=== PATIENT | male | born 1995 | race Caucasian/White ===

== ENCOUNTER 2020-12-12 21:19 | Emergency (ER) | payer MEDICAID ==
[~2020-12-12] VITALS: Ht 188 cm; Wt 92.0 kg
[2020-12-12 21:35] VITALS: BP 138/82
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
--- NOTE | 2020-12-12 23:58 | NUR ---
At this time, primary RN asked if this pt could be discharged by this RN. Pt a&ox4, and sitting up in bed. f/u and d/c instructions given to pt and explained and he states that while he understands, that he does not want to leave as we have not treated his complaint the way he feels we should have. Pt was sent to the xray dept for xrays of his L hip and shoulder, and he refused the xrays, saying that's not what he wanted and that he feels he needs a full body MRI. Pt reoriented to the treatment process that the MD had ordered, and that he had refused it. No more tests relevant to pts complaints are ordered at this time, as the relevant ones were refused by the pt. Pt now refuses to leave and has become beligerent in the room, saying we haven't treated him and attempting to state that he legally can't be d/c. the MD has physically assesed and cleared the pt, and d/c instructions printed and released by the MD. Pt again told he is d/c as no more treatment relevant to his complaint is needed, as he refused the treatment and tests needed. Pt remains beligerent and game design instructor notified, and security called to bedside. situation explained to security, that pt is now refusing to be d/c after refusing the care and testing ordered by the MD's. DC paperwork provided for pt, and paperwork placed in his bag for d/c. wheelchair provided for pt, and security at room to d/c pt at this time. pt in no acute distress, able to stand without assistance and bend legs and rotate onto bed. All movements that he says he can't do, but were witnessed by the RN and MD. pt d/c'd by security.
== END 2020-12-13 00:04 | disposition home or self-care (01) ==
LOC: ED 21:29
DX: G89.11 Acute pain due to trauma (principal); M25.552 Pain in left hip; M25.512 Pain in left shoulder; M79.89 Other specified soft tissue disorders
CPT/HCPCS: 99283

== ENCOUNTER 2021-01-03 22:31 | Emergency (ER) | payer BC, MEDICAID ==
[~2021-01-03] VITALS: Ht 188 cm; Wt 91.8 kg
--- NOTE | 2021-01-03 23:07 | NUR ---
Pt fully ambulatory from arrival through triage, NAD, VSS.
[2021-01-03 23:46] VITALS: BP 133/70
== END 2021-01-04 00:07 | disposition home or self-care (01) ==
LOC: ED 23:01
DX: L30.9 Dermatitis, unspecified (principal)
CPT/HCPCS: 99283

== ENCOUNTER 2021-01-08 00:05 | Emergency (ER) | payer MEDICAID ==
[~2021-01-08] VITALS: Ht 188 cm; Wt 90.0 kg
--- NOTE | 2021-01-08 00:07 | NUR ---
Pt denies thoughts of harming himself or others, Pt reports he is having hallucinations, not taking his psych meds.
--- NOTE | 2021-01-08 00:14 | NUR ---
Lab at bedside.
[2021-01-08 00:23] LABS: BASOPHILS % (AUTO) 1 % (0-1); EOSINOPHILS % (AUTO) 1 % (1-7); LYMPHOCYTES % (AUTO) 19 % (22-44); MEAN CORPUSCULAR HEMOGLOBIN 32.2 pg (27.5-34.5); MEAN CORPUSCULAR HGB CONC 34.8 g/dL (33.2-36.2); MEAN PLATELET VOLUME 8.3 fL (7.4-10.4); MONOCYTES % (AUTO) 7 % (2-9); NEUTROPHILS % (AUTO) 73 % (42-75); PLATELET COUNT 212 x10^3/uL (130-400); RED BLOOD COUNT 4.96 x10^6/uL (4.38-5.82); RED CELL DISTRIBUTION WIDTH 12.9 % (9.4-14.8)
[2021-01-08 00:25] LABS: MD NO
[2021-01-08 00:34] LABS: ALANINE AMINOTRANSFERASE 35 U/L (12-78); ALBUMIN 4.4 g/dL (3.4-5.0); ANION GAP 8 mmol/L (5-15); CALCIUM 9.1 mg/dL (8.5-10.1); CHLORIDE 106 mmol/L (98-107); CREATININE 0.97 mg/dL (0.7-1.3); SALICYLATE LEVEL 2.1 mg/dL (2.8-20.0)
[2021-01-08 00:37] LABS: ALKALINE PHOSPHATASE 75 U/L (45-117); BILIRUBIN,TOTAL 0.4 mg/dL (0.2-1.0); TOTAL PROTEIN 8.2 g/dL (6.4-8.2)
--- NOTE | 2021-01-08 00:53 | NUR ---
UA collected and sent to lab- pt used a bedside urinal as he is afraid that he will spread his infection if he walks out of the room.
[2021-01-08 01:18] LABS: AMPHETAMINE SCREEN, URINE Negative (Negative); BARBITURATE SCREEN, URINE Negative (Negative); BENZODIAZEPINE SCREEN, URINE Negative (Negative); CANNABINOID SCREEN, URINE Negative (Negative); COCAINE SCREEN, URINE Negative (Negative); METHADONE SCREEN, URINE Negative (Negative); OPIATE SCREEN, URINE Negative (Negative)
--- NOTE | 2021-01-08 01:50 | NUR ---
Pt denies needs at this time. Tele psych monitor set up in room, no one has come on it yet though.
--- NOTE | 2021-01-08 02:32 | NUR ---
REPORT FROM HARJINDER DODSON
--- NOTE | 2021-01-08 02:34 | NUR ---
Still waiting for tele psych. Pt transported to room 1 and report given to IVORY Jay.
--- NOTE | 2021-01-08 04:02 | NUR ---
PT REPOSITIONED IN BED, AWAITING TELEPSYCH. PT DENIES ANY ADDITIONAL NEEDS AT THIS TIME.
--- NOTE | 2021-01-08 05:19 | NUR ---
report recieved from nimisha brandt. pt resting in [facility], awaiting psych eval
--- NOTE | 2021-01-08 05:20 | NUR ---
BEDSIDE REPORT TO ANALI DODSON
--- NOTE | 2021-01-08 05:49 | NUR ---
pt provided water per request, telepsych called and are about to talk with patient now
[2021-01-08 06:28] VITALS: BP 133/82
== END 2021-01-08 06:30 | disposition home or self-care (01) ==
LOC: ED 05:07
DX: F29 Unspecified psychosis not due to a substance or known physiological condition (principal); R00.0 Tachycardia, unspecified
CPT/HCPCS: 36415; 80053; 80299; 80307; 80320; 80329; 85025; 99284; G0480

== ENCOUNTER 2021-01-09 01:33 | Emergency (ER) | payer MEDICAID ==
[~2021-01-09] VITALS: Ht 185.4 cm; Wt 85.0 kg
[2021-01-09 01:34] VITALS: BP 134/89
--- NOTE | 2021-01-09 03:35 | NUR ---
Dr Szymanski at bedside to examine pt hands.
== END 2021-01-09 03:49 | disposition home or self-care (01) ==
LOC: ED 03:13
DX: F29 Unspecified psychosis not due to a substance or known physiological condition (principal); F22 Delusional disorders
CPT/HCPCS: 99284

== ENCOUNTER 2021-01-11 23:33 | Emergency (ER) | payer MEDICAID ==
[~2021-01-11] VITALS: Ht 188 cm; Wt 95.0 kg
[2021-01-11 23:35] VITALS: BP 129/87
== END 2021-01-12 01:09 | disposition home or self-care (01) ==
LOC: ED 01-12 01:03
DX: Z00.00 Encounter for general adult medical examination without abnormal findings (principal); R11.0 Nausea; R19.7 Diarrhea, unspecified; Z87.891 Personal history of nicotine dependence
CPT/HCPCS: 71045; 99283

== ENCOUNTER 2021-01-16 23:30 | Emergency (ER) | payer MEDICAID ==
[~2021-01-16] VITALS: Ht 188 cm; Wt 91.0 kg
[2021-01-16 23:31] VITALS: BP 142/74
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
[2021-01-17 00:05] LABS: BASOPHILS % (AUTO) 1 % (0-1); EOSINOPHILS % (AUTO) 2 % (1-7); LYMPHOCYTES % (AUTO) 39 % (22-44); MD NO; MEAN CORPUSCULAR HEMOGLOBIN 32.3 pg (27.5-34.5); MEAN CORPUSCULAR HGB CONC 35.2 g/dL (33.2-36.2); MEAN PLATELET VOLUME 8.2 fL (7.4-10.4); MONOCYTES % (AUTO) 9 % (2-9); NEUTROPHILS % (AUTO) 50 % (42-75); PLATELET COUNT 251 x10^3/uL (130-400); RED CELL DISTRIBUTION WIDTH 13.1 % (9.4-14.8)
[2021-01-17 00:13] LABS: ALANINE AMINOTRANSFERASE 26 U/L (12-78); ALBUMIN 3.9 g/dL (3.4-5.0); ANION GAP 7 mmol/L (5-15); CALCIUM 8.9 mg/dL (8.5-10.1); CHLORIDE 108 mmol/L (98-107)
[2021-01-17 00:15] LABS: ALKALINE PHOSPHATASE 73 U/L (45-117); BILIRUBIN,TOTAL 0.4 mg/dL (0.2-1.0); TOTAL PROTEIN 7.3 g/dL (6.4-8.2)
--- NOTE | 2021-01-17 00:34 | NUR ---
Patient given discharge instructions and they have confirmed that they understand the instructions. Patient ambulatory with steady gait. PT refused taxi voucher or bus pass at time of d/c.
== END 2021-01-17 00:36 | disposition home or self-care (01) ==
LOC: ED 23:44
DX: F20.0 Paranoid schizophrenia (principal); Z87.891 Personal history of nicotine dependence
CPT/HCPCS: 36415; 80053; 85025; 99284

== ENCOUNTER 2021-01-17 01:26 | Emergency (ER) | payer MEDICAID ==
[~2021-01-17] VITALS: Ht 188 cm; Wt 91.7 kg
[2021-01-17 02:13] LABS: SALICYLATE LEVEL 2.1 mg/dL (2.8-20.0)
--- NOTE | 2021-01-17 02:18 | NUR ---
ALL PT BELONGINGS, X1 BAG PLACED IN APPROPRIATE LOCKER. PT PROVIDED SANDWICH AND WATER PER REQUEST. NO ADDITIONAL NEEDS AT THIS TIME. SAFETY PRECAUTIONS IN PLACE.
[2021-01-17 02:30] LABS: AMPHETAMINE SCREEN, URINE Negative (Negative); BARBITURATE SCREEN, URINE Negative (Negative); BENZODIAZEPINE SCREEN, URINE Negative (Negative); CANNABINOID SCREEN, URINE Negative (Negative); COCAINE SCREEN, URINE Negative (Negative); METHADONE SCREEN, URINE Negative (Negative); OPIATE SCREEN, URINE Negative (Negative)
--- NOTE | 2021-01-17 05:07 | NUR ---
packet faxed to chriss WOODS [facility], [facility]
--- NOTE | 2021-01-17 05:21 | NUR ---
[facility] accepts. Accepting doctor is Dr. Barone. [address] [facility].
--- NOTE | 2021-01-17 05:39 | NUR ---
REPORT TO RODNEY AT [facility]
--- NOTE | 2021-01-17 05:56 | NUR ---
SIDE STAPLER: [facility] NOTIFIED THAT PATIENT WOULD NOT BE ADMITTED TO THEIR FACILITY FOR INPATIENT TREATMENT.
--- NOTE | 2021-01-17 06:03 | NUR ---
U NURSE AT BEDSIDE FOR PT EVAL. PT RESTING CALMLY ON GURNEY, NADN, VSS. PT PROVIDED SOCKS PER REQUEST. NO ADDITIONAL NEEDS AT THIS TIME. SAFETY PRECAUTIONS IN PLACE, SITTER IN VIEW. WILL CONTINUE TO MONITOR.
[2021-01-17 06:05] VITALS: BP 122/80
--- NOTE | 2021-01-17 06:32 | NUR ---
Pt to be admitted to [facility], room 392-2. Report called to TRACK REPAIRER.
== END 2021-01-17 06:38 ==
LOC: ED 01:44
DX: F23 Brief psychotic disorder (principal); F20.9 Schizophrenia, unspecified; Z20.822 Contact with and (suspected) exposure to COVID-19
CPT/HCPCS: 36415; 80143; 80179; 80307; 80320; 87426; 99285; G0480

== ENCOUNTER 2021-01-17 07:09 | Inpatient (IN) | payer MEDICAID ==
[~2021-01-17] VITALS: Ht 188 cm; Wt 88.4 kg
[2021-01-17] MEDS ORDERED: BISACODYL 10 MG SUPP PR PRN (07:30)
[2021-01-17] MEDS ORDERED: DOCUSATE 100 MG CAPSULE PO PRN (07:30)
[2021-01-17] MEDS ORDERED: POLYETHYLENE GLYCOL 17 GM PACKET PO PRN (07:30)
[2021-01-17] MEDS ORDERED: ACETAMINOPHEN 325 MG TABLET PO PRN (07:30)
[2021-01-17] MEDS ORDERED: ONDANSETRON ODT 4 MG PO PRN (07:30)
[2021-01-17 07:45] VITALS: BP 120/69
[2021-01-17 07:46] LABS: MICROSCOPIC INDICATED
[2021-01-17 08:39] VITALS: BP 138/90
[2021-01-17 13:04] VITALS: BP 113/65
[2021-01-17 19:30] VITALS: BP 116/71
[2021-01-18 04:41] LABS: CHOL/HDL RATIO 4.4; LDL/HDL RATIO 2.4 (0.5-3.0)
[2021-01-18 08:00] VITALS: BP 138/82
[2021-01-18 20:13] VITALS: BP 108/63
[2021-01-19 07:54] VITALS: BP 124/85
[2021-01-19 19:30] VITALS: BP 125/80
[2021-01-20 07:59] VITALS: BP 118/78
[2021-01-20 19:16] VITALS: BP 133/76
[2021-01-21 07:32] VITALS: BP 125/81
== END 2021-01-21 15:00 | disposition home or self-care (01) | DRG 885 ==
LOC: 3E 07:11
PROVIDERS: ADMIT Psychiatry & Neurology Psychosomatic Medicine; ATTEND Psychiatry & Neurology Psychosomatic Medicine
DX: F20.0 Paranoid schizophrenia (principal); F17.200 Nicotine dependence, unspecified, uncomplicated; F14.90 Cocaine use, unspecified, uncomplicated; Z56.0 Unemployment, unspecified; Z83.3 Family history of diabetes mellitus; Z91.14 Patient's other noncompliance with medication regimen
CPT/HCPCS: 36415; 71045; 80061; 81001; 93005

== ENCOUNTER 2021-01-21 20:22 | Emergency (ER) | payer MEDICAID ==
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
[2021-01-21 20:47] VITALS: BP 145/100
--- NOTE | 2021-01-21 21:00 | NUR ---
MAGDALENA PA AT BEDSIDE. PT REFUSING TO LET THIS RN OR PA DO PHYSICAL EXAM.
--- NOTE | 2021-01-21 21:04 | NUR ---
PT ALLOWING THIS RN TO TAKE PULSE, O2, AND BP BUT IS REFUSING TEMPERATURE.
--- NOTE | 2021-01-21 21:15 | NUR ---
PT GIVEN DISCHARGE INSTRUCTIONS AND EDUCATION. ALL QUESTIONS ANSWERED, MAGDALENA PA AT BEDSIDE.
== END 2021-01-21 21:18 | disposition home or self-care (01) ==
LOC: ED 21:10
DX: F20.9 Schizophrenia, unspecified (principal)
CPT/HCPCS: 99284

== ENCOUNTER 2021-02-10 13:40 | Emergency (ER) | payer MEDICAID ==
[~2021-02-10] VITALS: Ht 188 cm; Wt 100.0 kg
[2021-02-10 13:47] VITALS: BP 176/81
--- NOTE | 2021-02-10 14:30 | NUR ---
Deon NAVA at bedside to susan pt
== END 2021-02-10 15:05 | disposition home or self-care (01) ==
LOC: ED 14:15
DX: F25.0 Schizoaffective disorder, bipolar type (principal); F22 Delusional disorders; R45.1 Restlessness and agitation; Z91.14 Patient's other noncompliance with medication regimen
CPT/HCPCS: 99284